=== PATIENT | female | born 1975 | race Caucasian/White ===

== ENCOUNTER 2020-04-29 18:18 | Emergency (ER) | payer MEDICAID ==
[~2020-04-29] VITALS: Ht 142.2 cm; Wt 59.4 kg
[2020-04-29 18:49] VITALS: BP 113/60
[2020-04-29 19:23] LABS: BASOPHILS % (AUTO) 0.3 % (0.0-2.0); EOSINOPHILS % (AUTO) 0.4 % (0.0-4.0); HEMATOCRIT 33.1 % (36-48); HEMOGLOBIN 9.9 g/dL (12.0-16.0); LYMPHOCYTES # (AUTO) 1.1 K/uL (2.5-16.5); LYMPHOCYTES % (AUTO) 16.5 % (20.5-51.1); MEAN CORPUSCULAR HEMOGLOBIN 19 pg (27-31); MEAN CORPUSCULAR HGB CONC 30 g/dL (33-37); MEAN CORPUSCULAR VOLUME 62.6 fL (80-94); MONOCYTES # (AUTO) 0.5 K/uL (0.8-1.0); MONOCYTES % (AUTO) 7.8 % (1.7-9.3); NEUTROPHILS # (AUTO) 4.9 K/uL (1.8-7.7); PLATELET COUNT (AUTO) 323 K/uL (140-450); RED CELL DISTRIBUTION WIDTH 19.3 % (11.6-13.7); WHITE BLOOD COUNT (AUTO) 6.5 K/uL (4.8-10.8)
[2020-04-29 19:39] LABS: ALBUMIN 3.7 g/dL (3.4-5.0); ANION GAP 14.4 (8-16); CARBON DIOXIDE 24.9 mmol/L (21-32); CREATININE 0.5 mg/dL (0.6-1.3); POTASSIUM 4.3 mmol/L (3.5-5.1); TOTAL BILIRUBIN 0.2 mg/dL (0.0-1.0)
--- NOTE | 2020-04-29 20:46 | NUR ---
TO ER BED 7
--- NOTE | 2020-04-29 20:51 | NUR ---
45 YO F BIB SELF WITH C/C OF FEELING THAT SHE WAS GOING TO SYNCOPE. PT STATED SHE BEGAN TO SWEAT, FELT COLD AND NAUSEA. PT DENIED V/D. -FEVER, -COUGH, -CHILLS. PT STATED IT HASNT HAPPENED IN THE PAST. PT IS A&O X4. BED LOCKED IN LOWEST POSITION, SIDE RAIL X1. HX: DENIES RX: DENIES LMP: 04/28
--- NOTE | 2020-04-29 21:06 | NUR ---
DR COMBS AT BEDSIDE EVALUATING PT
[2020-04-29 21:19] LABS: APPEARANCE,URINE CLEAR (CLEAR); BILIRUBIN,URINE NEGATIVE (NEGATIVE); BLOOD, URINE 2+ (NEGATIVE); COLOR,URINE YELLOW (YELLOW); LEUKOCYTE ESTERASE ,URINE NEGATIVE (NEGATIVE); NITRITE, URINE NEGATIVE (NEGATIVE); UGLUCOSE 3+ (NEGATIVE)
--- NOTE | 2020-04-29 21:21 | NUR ---
XRAY AT BEDSIDE
--- NOTE | 2020-04-29 21:30 | NUR ---
NO NURSING INTERVENTIONS NEEDED.
[2020-04-29 21:44] LABS: RBC,URINE 0-5 /HPF (0-5); WBC,URINE NONE SEEN /HPF (0-5)
[2020-04-29 21:52] VITALS: BP 106/61
--- NOTE | 2020-04-29 21:52 | NUR ---
Patient discharged with v/s stable. Written and verbal after care instructions given and explained. Patient alert, oriented and verbalized understanding of instructions. Ambulatory with steady gait. All questions addressed prior to discharge. ID band removed. Patient advised to follow up with PMD. Rx of METFORMIN given. Patient educated on indication of medication including possible reaction and side effects. Opportunity to ask questions provided and answered.
--- NOTE | 2020-04-29 21:54 | NUR ---
Manisha gomez in [facility] - 04/29/20 at 2154 by [facility] NO NURSING INTERVENTIONS NEEDED.
== END 2020-04-29 21:52 | disposition home or self-care (01) ==
LOC: MED 18:18
DX: E11.65 Type 2 diabetes mellitus with hyperglycemia (principal); R55 Syncope and collapse
CPT/HCPCS: 36415; 71045; 80053; 81001; 81025; 84484; 85025; 93005; 99285